=== PATIENT | female | born 1955 | race Caucasian/White ===

== ENCOUNTER 2016-03-09 01:05 | Emergency (ER) | payer OTHER ==
--- NOTE | 2016-03-09 01:19 | PDOC ---
History of Present Illness - General History Source: Patient, Family Exam Limitations: Language Barrier - History of Present Illness Initial Comments: 03/09/16 02:58 The patient is a 60 year old female, with no significant past medical history, who presents to the emergency department complaining of lower back pain for approximately 1 week. The patient reports she was diagnosed with sciatica about a week ago.As per son, the patient is compliant with the naproxen and cyclobenzaprine she was prescribed. Since her diagnosis she has been able to walk normally, until 2-3 hours ago. The patient states she was walking up the stairs when her pain worsened. Since going up the stairs, she has been unable to walk and was transported to the ED per EMS. As per son, the patient states the pain begins in her waist and shoots down her leg. She describes the pain as if she were receiving an electrical shock. She reports associated chills, but denies fever, cough, headache, dizziness, or paresthesias. She states she has been living with neck and lower back pain since her childhood, but over the past year her symptoms have worsened. She reports 2-3 episode of urinary incontinence today, but denies dysuria or hematuria. The patient denies chest pain, diaphoresis, palpitations, or shortness of breath. Allergies: None reported. Past Surgical History: None reported. Social History: Non-smoker. Denies alcohol or drug use. <Anat Holm - Last Filed: 03/09/16 03:45> <Melissa Balderrama - Last Filed: 03/10/16 01:46> - General Chief Complaint: Back Pain Stated Complaint: BACK PAIN Time Seen by Provider: 03/09/16 01:09 Past History <Anat oHlm - Last Filed: 03/09/16 03:45> <Melissa Balderrama - Last Filed: 03/10/16 01:46> - Past Medical History Allergies/Adverse Reactions: Allergies Allergy/AdvReac Type Severity Reaction Status Date / Time No Known Allergies Allergy Verified 03/09/16 01:50 Home Medications: Ambulatory Orders Cyclobenzaprine HCl [Flexeril -] 10 mg PO BID 03/09/16 Naproxen [Naprosyn -] 500 mg PO BID 03/09/16 Oxycodone HCl/Acetaminophen [Percocet 5/325 -] 2 tab PO Q8H #30 tablet MDD 6 Review of Systems - Review of Systems Able to Perform ROS?: Yes Comments:: 03/09/16 02:58 GENERAL/CONSTITUTIONAL: +Chills. No fever. No weakness. HEAD, EYES, EARS, NOSE AND THROAT: No change in vision. No ear pain or discharge. No sore throat. CARDIOVASCULAR: No chest pain or shortness of breath. RESPIRATORY: No cough, wheezing, or hemoptysis. GASTROINTESTINAL: No nausea, vomiting, diarrhea or constipation. GENITOURINARY: +Urinary incontinence. No dysuria or hematuria. MUSCULOSKELETAL: +Lower back pain radiating down left leg, +neck pain. + Difficulty walking secondary to lower back pain. No joint or muscle swelling or pain. SKIN: No rash NEUROLOGIC: No headache, vertigo, loss of consciousness, or change in strength/ sensation. ENDOCRINE: No increased thirst. No abnormal weight change. HEMATOLOGIC/LYMPHATIC: No anemia, easy bleeding, or history of blood clots. ALLERGIC/IMMUNOLOGIC: No hives or skin allergy. <Anat Holm - Last Filed: 03/09/16 03:45> *Physical Exam - Vital Signs Last Vital Signs Temp Pulse Resp BP Pulse Ox 98 F 67 22 115/61 100 03/09/16 01:17 03/09/16 01:17 03/09/16 01:17 03/09/16 01:17 03/09/16 01:17 - Physical Exam Comments: 03/09/16 02:59 GENERAL: Awake, alert, and fully oriented, in no acute distress HEAD: No signs of trauma EYES: PERRLA, EOMI, sclera anicteric, conjunctiva clear ENT: Auricles normal inspection, hearing grossly normal, nares patent, oropharynx clear without exudates. Moist mucosa NECK: Normal ROM, supple, no lymphadenopathy, JVD, or masses LUNGS: Breath sounds equal, clear to auscultation bilaterally. No wheezes, and no crackles HEART: Regular rate and rhythm, normal S1 and S2, no murmurs, rubs or gallops ABDOMEN: Soft, nontender, normoactive bowel sounds. No guarding, no rebound. No masses EXTREMITIES: Normal range of motion, no edema. No clubbing or cyanosis. No cords, erythema, or tenderness NEUROLOGICAL: +Tenderness to palpation along the left lower lumbar paravertebral region. Cranial nerves II through XII grossly intact. Normal speech. Muscle strength 5/5. SKIN: Warm, Dry, normal turgor, no rashes or lesions noted. <Anat oHlm - Last Filed: 03/09/16 03:45> ED Treatment Course - LABORATORY CBC & Chemistry Diagram: 03/09/16 02:00 03/09/16 02:00 - ADDITIONAL ORDERS Additional order review: Laboratory Results 03/09/16 02:00 Sodium 139 Potassium 3.9 Chloride 104 Carbon Dioxide 23 Anion Gap 12 BUN 21 H Creatinine 0.9 Creat Clearance w eGFR > 60 Random Glucose 179 H Calcium 8.6 Total Bilirubin 0.4 AST 15 ALT 28 Alkaline Phosphatase 112 Total Protein 8.4 H Albumin 3.9 03/09/16 02:00 RBC 4.41 MCV 91.9 MCHC 34.2 RDW 12.3 MPV 7.2 L Neutrophils % 63.4 Lymphocytes % 29.1 Monocytes % 5.7 Eosinophils % 1.4 Basophils % 0.4 - RADIOLOGY Radiograph Interpretation: 03/09/16 03:45 EXAM: CT Lumbar spine without contrast INTERPRETED BY: Dr. Botello REVIEWED BY: Dr. Balderrama IMPRESSION: Left posterolateral disc protrusion with mass effect on the exiting left L5 nerve root. Mass effect noted on the thecal sac. - Medications Given in the ED: ED Medications Discontinued Medications Generic Name Dose Route Start Last Admin Trade Name Freq PRN Reason Stop Dose Admin Morphine Sulfate 2 mg 03/09/16 01:52 03/09/16 02:21 Morphine Injection - IVPUSH 03/09/16 01:53 2 mg ONCE ONE Administration Ondansetron HCl 4 mg 03/09/16 02:34 03/09/16 02:35 Zofran Injection IVPB 03/09/16 02:35 4 mg NOW ONE Administration Sodium Chloride 1,000 ml 03/09/16 01:52 03/09/16 02:21 Normal Saline - IV 03/09/16 01:53 1,000 ml ONCE ONE Administration <Anat Holm - Last Filed: 03/09/16 03:45> - LABORATORY CBC & Chemistry Diagram: 03/09/16 02:00 03/09/16 02:00 <Melissa Balderrama - Last Filed: 03/10/16 01:46> Medical Decision Making - Medical Decision Making 03/09/16 03:44 Patient Name: Apple Mariscal This is a preliminary report by imaging [facility] Exam: CT lumbar spine without contrast Images: [id number] Clinical indication: Pain. Sciatica. Reformatted coronal and sagittal images were provided. Findings: Osteopenia and spondylosis is noted. The vertebral body heights and disc spaces are preserved. There is straightening of normal lumbar lordosis. Anatomic alignment of the lumbar spine is maintained. Mild to moderate mass effect noted on the thecal sac at L4-L5 due to a left posterolateral disc protrusion which impinges on the exiting L5 nerve root on the left. Mild central posterior disc bulge noted at L3-L4 no impingement seen on the exiting nerve roots. No other significant disc herniation identified. Impression: Left posterolateral disc protrusion with mass effect on the exiting left L5 nerve root. Mass effect noted on the thecal sac. THIS DOCUMENT HAS BEEN ELECTRONICALLY SIGNED 03/10/16 01:45 Pt has left sciatica and she feels better with morphine. Home with percocet and she will follow with neurology and neuros[place] [facility] [place] <Melissa Balderrama - Last Filed: 03/10/16 01:46> *DC/Admit/Observation/Transfer - Attestations Scribe Attestion: 03/09/16 02:59 Documentation prepared by Anat Holm, acting as medical director/head team physician for Melissa Balderrama MD. <Anat Holm - Last Filed: 03/09/16 03:45> - Discharge Dispostion Admit: No <Melissa Balderrama - Last Filed: 03/10/16 01:46> Diagnosis at time of Disposition: Disk prolapses, Lumbar back pain with radiculopathy affecting left lower extremity, Inability to walk - Discharge Dispostion Disposition: HOME Condition at time of disposition: Guarded - Prescriptions Prescriptions: Oxycodone HCl/Acetaminophen [Percocet 5/325 -] 2 tab PO Q8H #30 tablet MDD 6 - Referrals Referrals: Quyen Candelaria MD [Staff Physician] - Alysa Multani MD [Staff Physician] - Marcial Cordova MD [Staff Physician] - Andre Fernandes MD [Non Staff, Medical] - Kaykay Maher PA [Physician Parts Sales Manager] - Alis Escobedo NP [Nurse Practitioner] - - Patient Instructions Printed Discharge Instructions: DI for Lumbar Radiculopathy, DI for Herniated Disc
[2016-03-09 01:22] VITALS: PULSE 67; TEMP 98; BMI 28.7
[2016-03-09] MEDS ORDERED: morphine CARPU-JECT 2 MG/1 ML DISP.SYRIN IVPUSH ONE (01:52)
[2016-03-09] MEDS ORDERED: SODIUM CHLORIDE 0.9% 500 ML INFUS.BAG IV ONE (01:52)
[2016-03-09] MEDS ORDERED: morphine CARPU-JECT 2 MG/1 ML DISP.SYRIN ONE (02:06)
[2016-03-09 02:12] LABS: BASOPHIL 0.4 % (0-2.0); EOSINOPHIL 1.4 % (0-4.5); MCH 31.4 pg (25.7-33.7); MCHC 34.2 g/dl (32.0-36.0); MEAN CELL VOLUME 91.9 fl (80-96); MEAN PLT VOLUME 7.2 fl (7.5-11.1); NEUTROPHILS 63.4 % (42.8-82.8); PLATELET COUNT 204 K/MM3 (134-434); RDW 12.3 % (11.6-15.6); WHITE BLOOD COUNT 6.5 K/mm3 (4.0-10.0)
[2016-03-09] MEDS ORDERED: ONDANSETRON 4 MG/2 ML VIAL ONE (02:31)
[2016-03-09 02:34] LABS: ALBUMIN 3.9 g/dl (3.4-5.0); ALK PHOS 112 U/L (45-117); ANION GAP 12 (8-16); BILIRUBIN,TOTAL 0.4 mg/dL (0.2-1.0); CALCIUM 8.6 mg/dL (8.5-10.1); CO2 23 mmol/L (21-32); CREATININE 0.9 mg/dL (0.55-1.02); GLUCOSE,RANDOM 179 mg/dL (74-106); SGOT/AST 15 U/L (15-37); SGPT/ALT 28 U/L (12-78); TOT PROT 8.4 g/dl (6.4-8.2)
[2016-03-09] MEDS ORDERED: ONDANSETRON 4 MG/2 ML VIAL IVPB ONE (02:34)
[2016-03-09 04:12] VITALS: BP 130/78
[2016-03-09] MEDS ORDERED: morphine CARPU-JECT 2 MG/1 ML DISP.SYRIN IVPUSH PRN (04:33)
[2016-03-09] MEDS ORDERED: OXYCODONE/APAP 5/325MG COMBO TABLET PO ONE (04:52)
[2016-03-09] MEDS ORDERED: OXYCODONE/APAP 5/325MG COMBO TABLET ONE (04:55)
--- NOTE | 2016-03-09 04:59 | HP ---
CHIEF COMPLAINT: PCP: HISTORY OF PRESENT ILLNESS: ER course was notable for: (1) (2) (3) Recent Travel: PAST MEDICAL HISTORY: PAST SURGICAL HISTORY: Social History: Smoking: Alcohol: Drugs: Family History: Allergies No Known Allergies Allergy (Verified 03/09/16 01:50) HOME MEDICATIONS: 3 Medication Instructions Recorded Cyclobenzaprine HCl [Flexeril -] 10 mg PO BID 03/09/16 Naproxen [Naprosyn -] 500 mg PO BID 03/09/16 REVIEW OF SYSTEMS CONSTITUTIONAL: Absent: fever, chills, diaphoresis, generalized weakness, malaise, loss of appetite, weight change HEENT: Absent: rhinorrhea, nasal congestion, throat pain, throat swelling, difficulty swallowing, mouth swelling, ear pain, eye pain, visual changes CARDIOVASCULAR: Absent: chest pain, syncope, palpitations, irregular heart rate, lightheadedness , peripheral edema RESPIRATORY: Absent: cough, shortness of breath, dyspnea with exertion, orthopnea, wheezing, stridor, hemoptysis GASTROINTESTINAL: Absent: abdominal pain, abdominal distension, nausea, vomiting, diarrhea, constipation, melena, hematochezia GENITOURINARY: Absent: dysuria, frequency, urgency, hesitancy, hematuria, flank pain, genital pain MUSCULOSKELETAL: Absent: myalgia, arthralgia, joint swelling, back pain, neck pain SKIN: Absent: rash, itching, pallor HEMATOLOGIC/IMMUNOLOGIC: Absent: easy bleeding, easy bruising, lymphadenopathy, frequent infections ENDOCRINE: Absent: unexplained weight gain, unexplained weight loss, heat intolerance, cold intolerance NEUROLOGIC: Absent: headache, focal weakness or paresthesias, dizziness, unsteady gait, seizure, mental status changes, bladder or bowel incontinence PSYCHIATRIC: Absent: anxiety, depression, suicidal or homicidal ideation, hallucinations. PHYSICAL EXAMINATION Vital Signs - 24 hr 3 03/09/16 03/09/16 01:17 04:11 Temperature 98 F Pulse Rate 67 Respiratory 22 Rate Blood Pressure 115/61 Blood Pressure 130/78 [Left Arm] O2 Sat by Pulse 100 Oximetry (%) GENERAL: Awake, alert, and fully oriented, in no acute distress. HEAD: Normal with no signs of trauma. EYES: Pupils equal, round and reactive to light, extraocular movements intact, sclera anicteric, conjunctiva clear. No lid lag. EARS, NOSE, THROAT: Ears normal, nares patent, oropharynx clear without exudates. Moist mucous membranes. NECK: Normal range of motion, supple without lymphadenopathy, JVD, or masses. LUNGS: Breath sounds equal, clear to auscultation bilaterally. No wheezes, and no crackles. No accessory muscle use. HEART: Regular rate and rhythm, normal S1 and S2 without murmur, rub or gallop. ABDOMEN: Soft, nontender, not distended, normoactive bowel sounds, no guarding, no rebound, no masses. No hepatomegaly or splenomegaly. MUSCULOSKELETAL: Normal range of motion at all joints. No bony deformities or tenderness. No CVA tenderness. UPPER EXTREMITIES: 2+ pulses, warm, well-perfused. No cyanosis. No clubbing. Cap refill <2 seconds. No peripheral edema. LOWER EXTREMITIES: 2+ pulses, warm, well-perfused. No calf tenderness. No peripheral edema. NEUROLOGICAL: Cranial nerves II-XII intact. Normal speech. Normal gait. PSYCHIATRIC: Cooperative. Good eye contact. Appropriate mood and affect. SKIN: Warm, dry, normal turgor, no rashes or lesions noted. Laboratory Results - last 24 hr 3 03/09/16 03/09/16 02:00 02:00 WBC 6.5 RBC 4.41 Hgb 13.9 Hct 40.5 MCV 91.9 MCHC 34.2 RDW 12.3 Plt Count 204 MPV 7.2 L Neutrophils % 63.4 Lymphocytes % 29.1 Monocytes % 5.7 Eosinophils % 1.4 Basophils % 0.4 Sodium 139 Potassium 3.9 Chloride 104 Carbon Dioxide 23 Anion Gap 12 BUN 21 H Creatinine 0.9 Creat Clearance w eGFR > 60 Random Glucose 179 H Calcium 8.6 Total Bilirubin 0.4 AST 15 ALT 28 Alkaline Phosphatase 112 Total Protein 8.[address] lumbar spine: Impression: Left posterolateral disc protrusion with mass effect on the exiting left L5 nerve root. Mass effect noted on the thecal sac. ASSESSMENT/PLAN:
[2016-03-09] MEDS ORDERED: BACLOFEN 10 MG TABLET (FP) PO SCH (06:00)
[2016-03-09] MEDS ORDERED: POLYETHYLENE GLYCOL 3350 119 GM BTL PO SCH (10:00)
== END 2016-03-09 05:08 | disposition home or self-care (01) ==
LOC: JER 01:05
PROC: 3E033NZ Introduction of Analgesics, Hypnotics, Sedatives into Peripheral Vein, Percutaneous Approach (ICD-10-PCS; principal; 2016-03-09)
PROC: 3E033GC Introduction of Other Therapeutic Substance into Peripheral Vein, Percutaneous Approach (ICD-10-PCS; 2016-03-09)
DX: M54.42 Lumbago with sciatica, left side (principal); M54.16 Radiculopathy, lumbar region
CPT/HCPCS: 36415; 72131-TC; 80053; 85025; 96374; 96375; 99282-25